=== PATIENT | male | born 1975 | race Caucasian/White ===

== ENCOUNTER 2018-06-30 19:09 | Outpatient (REF) | payer BC, SELFPAY ==
[2018-06-30 22:08] LABS: ALT 48 U/L (12-78); AST 26 U/L (15-37); Albumin 4.4 g/dL (3.4-5.0); Alkaline Phosphatase 110 U/L (46-116); BUN 19 mg/dL (7-18); Bilirubin, Total 0.6 mg/dL (0.2-1.0); CREATININE 1.31 mg/dL (0.70-1.30); Calcium 9.4 mg/dL (8.5-10.1); Chloride 100 mmol/L (98-107); Cholesterol 263 mg/dL (50-200); Estimated GFR 59.44 (mL/min/1.73m2); Glucose 85 mg/dL (70-100); HDL Cholesterol 41 mg/dL (40-60); LDL CHOLESTEROL 181 mg/dL (<100); Potassium 3.7 mmol/L (3.5-5.1); Sodium 140 mmol/L (136-145); TSH (W/Ref FT4) 2.21 uIU/mL (0.358-3.74); Total Protein 8.8 g/dL (6.4-8.2); Triglyceride 251 mg/dL (30-150)
== END 2018-06-30 19:29 ==
LOC: NCHCN 19:09
PROVIDERS: PCP Family Medicine; Visit Provider Family Medicine
DX: I10 Essential (primary) hypertension (principal); Z68.43 Body mass index [BMI] 50.0-59.9, adult; Z00.00 Encounter for general adult medical examination without abnormal findings
CPT/HCPCS: 80053; 80061; 83721; 84443

== ENCOUNTER 2018-08-18 08:25 | Outpatient (REF) | payer BC, SELFPAY ==
[2018-08-18 14:40] LABS: Anion Gap 7.9 mmol/L (3-11); BUN 27 mg/dL (7-18); CO2 30.1 mmol/L (21.0-32.0); CREATININE 1.24 mg/dL (0.70-1.30); Calcium 9.6 mg/dL (8.5-10.1); Chloride 101 mmol/L (98-107); Glucose 144 mg/dL (70-100); Potassium 4.4 mmol/L (3.5-5.1); Sodium 139 mmol/L (136-145)
[2018-08-18 16:07] LABS: COMMENT (LAB VIEW ONLY) 184.29 mg/dL; PROTEIN 15.2 mg/dL; Prot/Crea Ur Ratio 0.08
== END 2018-08-18 08:45 ==
LOC: NCHCN 08:25
PROVIDERS: PCP Family Medicine; Visit Provider Family Medicine
DX: I10 Essential (primary) hypertension (principal); N28.9 Disorder of kidney and ureter, unspecified
CPT/HCPCS: 80048; 82565; 84156

== ENCOUNTER 2019-07-01 10:34 | Outpatient (REF) | payer BC, SELFPAY ==
[2019-07-01 13:43] LABS: Anion Gap 10.9 mmol/L (3-11); BUN 20 mg/dL (7-18); CO2 27.1 mmol/L (21.0-32.0); CREATININE 1.16 mg/dL (0.70-1.30); Calcium 9.5 mg/dL (8.5-10.1); Chloride 99 mmol/L (98-107); Glucose 109 mg/dL (74-106); Potassium 4.2 mmol/L (3.5-5.1); Sodium 137 mmol/L (136-145)
== END 2019-07-01 10:54 ==
LOC: NCHCN 10:34
PROVIDERS: PCP Family Medicine; Visit Provider Family Medicine
DX: Z00.00 Encounter for general adult medical examination without abnormal findings (principal); I10 Essential (primary) hypertension
CPT/HCPCS: 80048

== ENCOUNTER 2021-03-21 15:56 | Outpatient (REF) | payer SELFPAY ==
[2021-03-21 14:12] LABS: Anion Gap 11.3 mmol/L (3-11); BUN 17 mg/dL (7-18); CO2 24.7 mmol/L (21.0-32.0); CREATININE 1.2 mg/dL (0.70-1.30); Calcium 8.9 mg/dL (8.5-10.1); Calculated LDL 176 mg/dL (<100); Chloride 103 mmol/L (98-107); Cholesterol 240 mg/dL (<200); Glucose 104 mg/dL (74-106); HDL Cholesterol 45 mg/dL (40-60); Hemoglobin A1C 5.6 % (<5.7); Potassium 3.8 mmol/L (3.5-5.1); Sodium 139 mmol/L (136-145); Triglyceride 98 mg/dL (<150)
== END 2021-03-21 15:57 | disposition home or self-care (01) ==
LOC: LBN 15:56
PROVIDERS: PCP Family Medicine; Visit Provider Family Medicine
DX: Z00.00 Encounter for general adult medical examination without abnormal findings (principal); N28.9 Disorder of kidney and ureter, unspecified; Z13.1 Encounter for screening for diabetes mellitus; Z13.220 Encounter for screening for lipoid disorders
CPT/HCPCS: 80048; 80061; 83036

== ENCOUNTER 2021-12-24 18:32 | Outpatient (REF) | payer SELFPAY ==
[2021-12-24 19:42] LABS: Anion Gap 9.7 mmol/L (3-11); BUN 16 mg/dL (7-18); CO2 25.3 mmol/L (21.0-32.0); CREATININE 1.3 mg/dL (0.70-1.30); Calcium 8.7 mg/dL (8.5-10.1); Calculated LDL 133 mg/dL (<100); Chloride 107 mmol/L (98-107); Cholesterol 216 mg/dL (<200); Estimated GFR 59.17 (mL/min/1.73m2); Glucose 111 mg/dL (74-106); HDL Cholesterol 43 mg/dL (40-60); Potassium 3.9 mmol/L (3.5-5.1); Sodium 142 mmol/L (136-145); Triglyceride 200 mg/dL (<150)
[2021-12-26 09:50] LABS: HBs Antibody, Quant <3.1 mIU/mL (See Note); Hepatitis B Surface Ab Negative (See Note)
[2021-12-26 09:55] LABS: Hepatitis B Surface Ag Negative (Negative)
[2021-12-26 10:33] LABS: Hep A Total Ab w Rflx IgM Negative (Negative)
[2021-12-26 10:49] LABS: Hepatitis C Ab w Rflx HCV PCR Negative (Negative)
== END 2021-12-24 18:33 | disposition home or self-care (01) ==
LOC: NCHCN 18:32
PROVIDERS: PCP Family Medicine; Visit Provider Family Medicine
DX: Z00.00 Encounter for general adult medical examination without abnormal findings (principal); E78.5 Hyperlipidemia, unspecified; Z11.59 Encounter for screening for other viral diseases; N28.9 Disorder of kidney and ureter, unspecified
CPT/HCPCS: 80048; 80061; 86706; 86709; 86803; 87340

== ENCOUNTER 2023-01-02 00:30 | Outpatient (CLI) | payer OTHER, SELFPAY ==
[2023-01-02 14:32] LABS: CREATININE 1.4 mg/dL (0.70-1.30)
[2023-01-02] MEDS: Normal Saline Flush 10 ML SYR IJ (14:56)
[2023-01-02] MEDS: Normal Saline - Diluent 50 ML VIAL IJ (15:05)
[2023-01-02] MEDS: Omnipaque 350 MG/ML 100 ML BTL IJ (15:08)
--- NOTE | 2023-01-02 15:20 | DI.CT_ITS ---
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 TECHNIQUE: Imaging Protocol: Axial computed tomography images with coronal and sagittal reformatted images were created and reviewed. CONTRAST MATERIAL: Intravenous: Contrast contrast volume:125 mL COMPARISON: No exams were available for comparison FINDINGS: Ventricles and Extra axial spaces: Normal in size and morphology for the patient's age. Hemorrhage: None. Cerebral parenchyma: Normal. Enhancement: No suspicious enhancement. [place]: Unremarkable. Midline shift: None. Brainstem/Cerebellum: Normal. Calvarium: Normal. Visualized Paranasal sinuses/Mastoids: Clear. IMPRESSION: 1. Normal CT scan of the head. 2. Please refer to the CT scan of the neck performed the same day for further details. RADIATION DOSE DELIVERED: 1,612.86mGy.cm Total DLP 1,612.86mGy.cm Total DLP DATA REPOSITORY: All CT scans at this facility are submitted to the National Radiology Data Registry (NRDR) Dose Index Registry (DIR) with the [employer] (ACR). RADIATION OPTIMIZATION: All CT scans at this facility use at least one of these dose optimization te chniques: automated exposure control; mA and/or kV adjustment per patient size (includes targeted exa ms where dose is matched to clinical indication); or iterative reconstruction.
--- NOTE | 2023-01-02 15:30 | DI.CT_ITS ---
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 TECHNIQUE: Imaging Protocol: Axial computed tomography images with coronal and sagittal reformatted images were created and reviewed. CONTRAST MATERIAL: Intravenous: Omnipaque 350 Contrast volume:85mL COMPARISON: No exams were available for comparison FINDINGS: Orbits and orbital soft tissues: Within normal limits. Visualized paranasal sinuses: Within normal limits. Nasopharynx: There is isodense soft tissue in the posterior fossa the nasopharynx measuring 2.2 x 2. 8 x 3.1 cm. There is no involvement of the underlying/adjacent bones. Oropharynx: Within normal limits. Hypopharynx: Within normal limits. Larynx: Within normal limits. Retropharyngeal space: Within normal limits. Parotids/submandibular: Within normal limits. Thyroid gland: Within normal limits. Lymphadenopathy: There is scattered lymph nodes seen along the level one to level three all measurin g less than 8 mm in short axis diameter which are physiologic in nature. Trachea: Within normal limits. Lung apices: Within normal limits. Bones: Within normal limits for the patient's age. Carotids/Jugular: Within normal limits. Soft tissues: Within normal limits. IMPRESSION: 1. Isodense soft tissue mass in the posterior fossa of the nasopharynx. A neoplasm cannot be exclude d. Biopsy should be considered for further evaluation. 2. The largest lymph node has a diameter of 6 mm. No significant cervical adenopathy is appreciated. RADIATION DOSE DELIVERED: 732.69mGy.cm Total DLP 732.69mGy.cm Total DLP DATA REPOSITORY: All CT scans at this facility are submitted to the National Radiology Data Registry (NRDR) Dose Index Registry (DIR) with the [employer] (ACR). RADIATION OPTIMIZATION: All CT scans at this facility use at least one of these dose optimization te chniques: automated exposure control; mA and/or kV adjustment per patient size (includes targeted exa ms where dose is matched to clinical indication); or iterative reconstruction.
== END 2023-01-02 00:50 ==
LOC: DI 00:31
PROVIDERS: PCP Family Medicine; Visit Provider Otolaryngology
DX: J39.2 Other diseases of pharynx (principal); R59.1 Generalized enlarged lymph nodes
CPT/HCPCS: 70491; 70470; 82565; J3490

== ENCOUNTER 2023-01-07 09:56 | Outpatient (REF) | payer OTHER, SELFPAY ==
--- NOTE | 2023-01-07 08:00 | NASALBX_PTH ---
PATIENT: Stephan Carrizales LOC: N U#:[id number] AGE/SX: 47/M ROOM: RE01/07/[address]: Armani Simeon MD : 1975 BED: DIS: 01/07/2023 SPEC #: [id number] RECD: 01/07/23 10:33 STATUS: NEEL REQ #: [id number] MOISÉS: 01/07/23 08:[address]: Armani Simeon DEPT: Surgical Specimen RECD BY: Yarelis Noguera ENTERED: 01/07/23 10:35 SP TYPE: NASALBX OTHR DR: Esteban Dasilva Tissues: 1 - MUCOSA, NOS 2 - FLOW CYTOMETRY NODE/TISSUE Procedures: GROSS AND MICRO LEVEL 4 FLOW CYTOMETRY LYMPHOMA PNL Comments: [id number] (FLOW CYTOMETRY - [id number])
== END 2023-01-07 09:57 | disposition home or self-care (01) ==
LOC: LBN 09:56
PROVIDERS: PCP Family Medicine; Visit Provider Otolaryngology
DX: J39.2 Other diseases of pharynx (principal)
CPT/HCPCS: 88305; 88184; 88185

== ENCOUNTER 2023-01-07 17:46 | Outpatient (REF) | payer OTHER, SELFPAY ==
[2023-01-09 14:02] LABS: Chlamydia Result Negative (Negative); GC Result Negative (Negative)
== END 2023-01-07 17:47 | disposition home or self-care (01) ==
LOC: NCHCN 17:46
PROVIDERS: PCP Family Medicine; Visit Provider Family Medicine
DX: Z00.00 Encounter for general adult medical examination without abnormal findings (principal)
CPT/HCPCS: 87491; 87591

== ENCOUNTER 2023-02-20 07:07 | Day surgery (SDC) | payer OTHER, SELFPAY ==
--- NOTE | 2023-02-19 19:54 | PDOC.DSDIS_ITS ---
Date of service: 02/20/23 Time of Service: 09:40 Discharge Plan Disposition Patient Disposition: Home Condition: Good Discharge Details Reason For Visit: colon scope Attending Provider: Inés Ulloa Primary Care Provider: Esteban Dasilva Home Meds and New Rx's Prescriptions: No Action losartan-hydrochlorothiazide 100-25 mg tablet 1 tab PO DAILY atorvastatin 20 mg tablet 20 mg PO QHS amlodipine 2.5 mg tablet 2.5 mg PO DAILY Discharge Instructions Additional Instructions: DSU Colonoscopy Post- Op Instructions Instructions for Everyone who is given Anesthesia: For your safety, please do the following for the next twenty-four (24) hours: *Do Not operate a motor vehicle (car, truck, motorcycle, etc.) *Do Not drink alcoholic beverages or use any recreational drugs for the first 24 hours or while taking pain medications. The medications in your body may have a reaction that can be dangerous. *Do Not make any important decisions or sign any important papers. Findings: multiple polyps Follow up: NO ASA/NSAID's for 7 days. No strenuous activity for 72 hrs. My office will send a letter in 2 to 3 weeks time with the results of the pathology on the polyp and when we want you to repeat the colonoscopy, most likely 3 years time. 1. No lifting over 20 pounds or strenuous activity for the first 72 hours after your procedure. After 72 hours there are no restrictions on your activity but you may feel fatigued for a few days. 2. After you arrive home you may have a light meal and return to your normal diet as you can tolerate it without feeling sick to your stomach. 3. You may have a bloated, gaseous feeling in your belly (abdomen) after a colonoscopy. Passing gas and belching will help. Walking or lying down on your left side with your knees flexed may relieve the discomfort. Call the office at [phone] (Office) or [phone] (Hospital) right away if you notice any of the following: a.Vomiting of blood or ?coffee ground stools?. b.Rectal bleeding 1Tbsp, blood clots or continuous bleeding. c.Severe belly (abdominal) pain. d.A hard distended belly (abdomen) and an inability to pass gas. 4. Please don?t expect to have a normal BM (bowel movement) for 2-3 days after your procedure. 5. If there are questions regarding the findings of your procedure, please contact your doctor 6. If you are unable to contact your doctor with a problem, contact the hospital at [phone]. 7. Continue all your regular medications unless directed otherwise. I understand the above instructions and have no questions. Signature of Patient or Adult Escort Name of Responsible Adult Escort Signature of Nurse Date/Time Activity:: see above Diet:: see above Discharge Orders Discharge Orders: Discharge Order (Routine); Ordered 02/20/23 Ordered By: Inés Ulloa DS: Diagnosis Discharge Diagnosis (1) Screening for malignant neoplasm of colon performed: Status: Acute Asessment and Plan: ? ? The patient is seen and examined after their colonoscopy.? The patient has been able to pass gas.? They are not having abdominal pain.? They have been able to tolerate liquids and a snack.? They do not have any nausea or vomiting.? They are not having any chest pain or shortness of breath.??? They are not having any rectal bleeding. Their vital signs have been stable-see nursing notes.? ? We discussed findings during their colonoscopy, and any biopsies that were done/polyps that were removed. The patient will be sent a letter with any biopsy results, and when to repeat the colonoscopy.-see discharge instructions.? No ASA or NSAIDs x1 week Patient is due to have his adenoids out on Thursday. I did attempt to get the dog at [place] but we could not contact him. I did leave instructions on his chart for Thursday and with the patient that cannot NSAIDs. Patient also had significant saturation during the procedure, please see anesthesia notes. I did discuss with the patient that even w/ adnoid removal, once he has recovered from this procedure, he needs to go for a sleep evaluation as he has significant desaturation while he is asleep. ? Patient was given explicit instructions to follow-up regarding colonoscopy-refer to discharge instructions.? We reviewed resumption of medications.? Patient verbalized understanding and discharged in stable and satisfactory condition- See nursing notes.? (2) Adenomatous polyps: Status: Acute (3) Renal insufficiency, mild: Status: Acute (4) BMI 45.0-49.9, adult: Status: Acute (5) Adenoidal hypertrophy: Status: Acute
--- NOTE | 2023-02-19 19:58 | W.COLOREPORT ---
Date of service: 02/20/23 Time of Service: 09:45 Colonoscopy Report Date of procedure: 02/20/23 Pre-op diagnosis general: CRC screening Post-op diagnosis procedure note: other (polyps) Surgeon: Inés Ulloa Anesthesia Type: General:No Airway Estimated blood loss (mL): 2 Pathology: other Complications: None Disposition: same day Prep: Miralax/Dulcolax Retraction Time: 25 Procedure Description: After informed consent was obtained the patient was taken to the procedure room and placed in a left decubitous position. Monitors were applied and a time out was done. The patients name, date of , procedure, allergies to medications and metal in their body was reviewed. The patient was then sedated. Once sedated and comfortable a rectal exam was done. External exam was normal. Internal exam revealed a normal sphincter tone and no palpable masses. The prostate is nonpalpable. The scope was then introduced and retrofelexed. No internal hemorrhoids were identified. The scope was then advanced to the cecum w/ some colon difficulty; he did require abdominal pressure. Prep was BBPS 3 in all segments for a total of 9 the TI and appendiceal orifice were identified. The prep was there are no polyps or AVMs identified today.. The scope was then slowly retracted over 25 minutes back into the rectum. There was a 0.75 cm pedunculated polyp at 20 cm. This is removed with a cold forcep. There is a 5 mm polyp adjacent to the cecum. This is removed with a cold biting forceps. There is a 1 cm flat polyp on the ileocecal valve. This was visualized under NBI and it is a polyp and not just the IC vavle itself. This was removed with cold snare. All specimen is retrieved and no bleeding is noted. 3 clips were placed across the defect. This was monitored, and there was no bleeding. He scope was removed and the patient was woken up and taken back to Same day surgery in stable condition. The patient tolerated the procedure well and there were no immediate complications. Follow up: The patient should follow up in 3-5 years, path pd, unless they develop changes in bowel habits or other new gastrointestinal complaints.
[2023-02-20 07:18] VITALS: BP 146/99; PULSE 79; RESP 19; TEMP 36.7; O2SAT 97
[2023-02-20] MEDS: Lactated Ringers 1,000 ML 80 ML IV (07:39)
--- NOTE | 2023-02-20 07:59 | W.ANESPRE ---
General Info Date of Service Date Performed: 02/20/23 Height: 5 ft 10 in Weight: 117.5 kg Body Mass Index (BMI): 37.1 Surgical Procedure: Operation Date: 02/20/23 08:20 Proposed Procedure Side Surgeon eugene Ulloa, Meds Allergies and Home Medications Allergies Allergy/AdvReac Type Severity Reaction Status Date / Time Penicillins Allergy Severe Verified 02/20/23 07:28 nickel Allergy Unknown Verified 02/20/23 07:28 Home Medication Medication Instructions Recorded amlodipine 2.5 mg tablet 2.5 mg PO DAILY 06/09/22 atorvastatin 20 mg tablet 20 mg PO QHS 06/09/22 losartan 100 1 tab PO DAILY 06/09/22 mg-hydrochlorothiazide 25 mg tablet Current Visit Medications: Current Medications Generic Name Dose Route Start Last Admin Trade Name Freq PRN Reason Stop Dose Admin Hyoscyamine Sulfate 0.125 mg 02/20/23 07:52 Hyoscyamine 0.125 Mg Sl/Oral/Chew SL 03/22/23 07:51 DIRECTED PRN Ringer's Solution 1,000 mls @ 80 mls/hr 02/20/23 06:00 02/20/23 07:39 IV 03/21/23 23:59 80 mls/hr INFUSION DIONI Administration IV Miscellaneous Supplies 1 each 02/20/23 06:00 Iv Access IV 03/21/23 23:59 DIRECTED DIONI Ondansetron HCl 4 mg 02/20/23 07:52 Ondansetron 4 Mg/2 Ml Vial IVP 03/22/23 07:51 Q4H PRN PRN Nausea / Vomiting Sodium Chloride 0 ml 02/20/23 06:00 Normal Saline Flush 10 Ml Syr IV 03/21/23 23:59 PRN PRN Sodium Chloride 0 ml 02/20/23 06:00 Normal Saline 10 Ml Vial IJ 03/21/23 23:59 DIRECTED PRN Sterile Water 0 ml 02/20/23 06:00 Water,Injection,Sterile 10 Ml Vial IJ 03/21/23 23:59 DIRECTED PRN PFSH Active Problems Active Problems: Problem Status Onset Code Screening for colon cancer Z12.11 Renal insufficiency, mild N28.9 Carpal tunnel syndrome of right wrist G56.01 BMI 45.0-49.9, adult Z68.42 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 stated he woke up during previous endoscopy Surgical History Surgical History (Updated 02/20/23 @ 07:27 by Narda Lenz RN) H/O endoscopy Hx laparoscopic cholecystectomy Hx of tonsillectomy Tobacco Smoking/Tobacco Use Status: Never Alcohol Alcohol Intake: current Alcohol intake frequency: a few times a week Substance Use Substance use type: does not use Vital Signs and Lab Results Vital Signs Most Recent Vital Signs in EMR: Most Recent Vital Signs Temp Pulse Resp BP Pulse Ox 36.7 C 79 19 146/99 H 97 02/20/23 07:18 02/20/23 07:18 02/20/23 07:18 02/20/23 07:18 02/20/23 07:18 Lab Results Blood Type / Crossmatch: No Data to Display Complete Blood Count: No Data to Display Complete Metabolic Panel: No Data to Display Liver Function Panel: No Data to Display Coagulation Panel: No Data to Display Cardiac Panel: No Data to Display Arterial Blood Gas: No Data to Display Venous Blood Gas: No Data to Display Pancreas Panel: No Data to Display Thyroid Panel: No Data to Display Infectious Disease: No Data to Display Blood Cultures: No Data to Display Toxicology Panel: No Data to Display Anesthesia Assessment and Plan Anesthesia History Personal History: No History of Anesthesia Complications and Other Family History: Other Exercise Tolerance Exercise Tolerance: Metabolic Equivalents>4 Pertinent Negatives Pertinent Negatives: No Symptoms of GERD (rare, food related) Cardiac & Pulmonary Exam Cardiac Exam: Normal S1/S2 Heart Sounds Pulmonary Exam: Clear Bilateral Breath Sounds Implantable Cardiac Device Does patient have a Pacemaker or an ICD?: No Airway Exam Known Difficult Airway: No Mallampati Class: 2 Mouth Opening: Normal (> 3cm) Thyromental Distance: Greater than 3 cm Neck Range of Motion: Full ROM Neck Circumference: Normal Teeth Condition: Normal Dentition ASA Classification ASA Score: ASA 2 Emergency Case?: No NPO Status NPO Status: NPO Clears >2 hours, Solids >8 hours Anesthesia Plan Resuscitation Status: Full Code Anesthesia Technique: General Anesthesia Airway Planned: Natural Airway Monitors Used: Standard Monitors
[2023-02-20 08:00] VITALS: BMI 37.1
--- NOTE | 2023-02-20 08:30 | BOWEL_PTH ---
PATIENT: Stephan Carrizales LOC: [facility] U#:[id number] AGE/SX: 47/M ROOM: RE02/20/[address]: Inés Ulloa : 1975 BED: DIS: 02/20/2023 SPEC #: [id number] RECD: 02/20/23 12:35 STATUS: NEEL RE #: [id number] MOISÉS: 02/20/23 08:[address]: Inés Ulloa DEPT: Surgical Specimen RECD BY: Yarelis Noguera ENTERED: 02/20/23 12:36 SP TYPE: Bowel OTHR DR: Esteban Dasilva Tissues: 1 - BIOPSY BOWEL 2 - BIOPSY BOWEL 3 - BIOPSY BOWEL Procedures: GROSS AND MICRO LEVEL 4 Comments: [id number]
[2023-02-20 09:25] VITALS: BP 120/81; PULSE 75; RESP 16; TEMP 36.3; O2SAT 94
[2023-02-20 09:55] VITALS: BP 119/91; PULSE 64; RESP 18; TEMP 36.2; O2SAT 96
--- NOTE | 2023-02-20 10:15 | W.ANESPOSTOP ---
Postoperative Evaluation Date, Time and Location Date Performed: 02/20/23 Time Performed: 10:15 Patient Location: Day Surgery Unit Vital Signs Most Recent Imported Vital Signs: Most Recent Vital Signs Temp Pulse Resp BP Pulse Ox 36.2 C L 64 18 119/91 H 96 02/20/23 09:55 02/20/23 09:55 02/20/23 09:55 02/20/23 09:55 02/20/23 09:55 Pain Score Most Recent Pain Score: Most Recent Pain Score Pain Level 0 02/20/23 09:25 Assessment Mental Status: Awake (Alert & Oriented to Patient Baseline) Airway and Respiratory Function: Patent airway with normal (patient baseline) respiratory exam Cardiovascular Function: Hemodynamically Stable Hydration Status: Adequately Hydrated Nausea & Vomiting: No Nausea or Vomiting Pain: Pt. Denies Any Pain Peripheral Nerve Block: Patient did not receive a nerve block Postoperative Comments:: Discussed need for patient to have sleep study, he will do this after he gets his adenoids out Thursday. He is comfortable with no complaints.
== END 2023-02-20 11:45 | disposition home or self-care (01) ==
PROVIDERS: PCP Family Medicine; Visit Provider Surgery
PROC: 0DJD8ZZ Inspection of Lower Intestinal Tract, Via Natural or Artificial Opening Endoscopic (ICD-10-PCS; CPT 45378; principal; 2023-02-20 08:15)
DX: Z12.11 Encounter for screening for malignant neoplasm of colon (principal); D12.0 Benign neoplasm of cecum
CPT/HCPCS: 45385; 45380; 88305; J2001

== ENCOUNTER 2023-03-23 06:49 | Day surgery (SDC) | payer OTHER, SELFPAY ==
[2023-03-23] VITALS (7 sets, daily range): BP systolic 106–142; BP diastolic 64–98; PULSE 71–78; RESP 14–22; TEMP 36.5–36.7; O2SAT 93–98; BMI 36.4
[2023-03-23] MEDS: Lactated Ringers 1,000 ML 80 ML IV (07:14)
[2023-03-23] MEDS: CLINDAMYCIN 900 MG/50 ML BAG 50 MG IVPB (07:24)
--- NOTE | 2023-03-23 08:06 | PDOC.DSDIS_ITS ---
Date of service: 03/23/23 Time of Service: 08:06 Discharge Plan Disposition Patient Disposition: Home Condition: Good Discharge Details Reason For Visit: Adenoidectomy Attending Provider: Armani Simeon Primary Care Provider: Esteban Dasilva Moore Meds and New Rx's Prescriptions: No Action losartan-hydrochlorothiazide 100-25 mg tablet 1 tab PO DAILY atorvastatin 20 mg tablet 20 mg PO QHS amlodipine 2.5 mg tablet 5 mg PO DAILY Discharge Instructions Additional Instructions: My cell phone number is [phone]. Please call with any questions or concerns. If you are unable to reach me and you feel it is an emergency, please call 911 or proceed to the emergency room Stand Alone Forms: ENT-Adenoid Inst. [place] Referrals: Armani Simeon MD [ [facility] STAFF PHYSICIAN] - (1 month, please call for appointment prior to patient's departure) Discharge Orders Discharge Orders: Discharge Order (Routine); Ordered 03/23/23 Ordered By: Armani Simeon
--- NOTE | 2023-03-23 08:08 | W.PM.OP ---
Date of service: 03/23/23 Time of Service: 08:59 Operative Note Operative Note DATE OF PROCEDURE: 03/23/23 PRE-OP DIAGNOSIS: Adenoidal hypertrophy POST-OP DIAGNOSIS: same PROCEDURE: Adenoidectomy SURGEON: Armani Simeon ANESTHESIA TYPE: General LMA/ETT Refer to Anesthesia Record ESTIMATED BLOOD LOSS: 50 PATHOLOGY: other (Adenoids) COMPLICATIONS: None Patient was transported to: PACU Patient's condition: stable Indications: Patient with the above problems. Options were explained to patient regarding further management. He elected to undergo the above procedure. Consent was filled out and signed prior to surgery. H&P was reviewed. There have been no changes. Findings: 4+ adenoids Procedure Description: After obtaining an adequate level of general endotracheal anesthesia the patient was positioned in a supine position and prepped and draped in appropriate fashion. A Sathya Bassam mouthgag was carefully introduced into the oral cavity and opened revealed soft and hard palate which were examined revealing no evidence of an occult cleft palate. Tonsils are absent. A catheter was passed through the right nares, grasped at the back of the throat and brought forward to retract the soft palate out of the way. A dental mirror was used to examine the adenoids, and then adenoidal curette used to remove part of the adenoidal tissue. Reverse Meltser's were used to remove the adenoidal tissue that extended up into the nasal cavity. Following this electrocautery suction tip catheter set on 35 W coagulation was used to ablate the residual adenoidal tissue, taking care to avoid damage the asuncion. I may accomplish this, both posterior choana were widely patent, and there was no significant residual adenoidal tissue. The asuncion were undamaged. The catheter was removed and the Sathya-Bassam mouthgag relaxed and removed. The patient tolerated this procedure well. No damage was done to the teeth or the tongue. The patient was then awakened and extubated by anesthesia and taken to recovery room in stable condition. I was present throughout the entire case.
--- NOTE | 2023-03-23 08:20 | W.ANESPRE ---
General Info Date of Service Date Performed: 03/23/23 Height: 5 ft 10.5 in Weight: 116.8 kg Body Mass Index (BMI): 36.4 Surgical Procedure: Operation Date: 03/23/23 08:25 Proposed Procedure Side Surgeon p Adenoidectomy Armani Simeon MD Actual Procedure Side Surgeon p Adenoidectomy Bilateral Armani Simeon MD Pre-Op Diagnosis Post-Op Diagnosis Adenoidal hypertrophy Adenoidal hypertrophy Meds Allergies and Home Medications Allergies Allergy/AdvReac Type Severity Reaction Status Date / Time Penicillins Allergy Severe Verified 03/23/23 07:07 nickel Allergy Unknown Verified 03/23/23 07:07 Home Medication Medication Instructions Recorded amlodipine 2.5 mg tablet 5 mg PO DAILY 06/09/22 atorvastatin 20 mg tablet 20 mg PO QHS 06/09/22 losartan 100 1 tab PO DAILY 06/09/22 mg-hydrochlorothiazide 25 mg tablet Current Visit Medications: Current Medications Generic Name Dose Route Start Last Admin Trade Name Freq PRN Reason Stop Dose Admin Acetaminophen 320 - 650 mg 03/23/23 08:05 Acetaminophen Solution 650 Mg/20.3 Ml Cup PO 04/22/23 08:04 Q4H PRN PRN Ringer's Solution 1,000 mls @ 80 mls/hr 03/23/23 06:00 03/23/23 07:14 IV 04/19/23 23:59 80 mls/hr INFUSION DIONI Administration Clindamycin Phosphate/Dextrose 900 mg in 50 mls @ 50 mls/hr 03/23/23 06:00 03/23/23 07:24 Cleocin In D5w IVPB 03/23/23 18:00 50 mls/hr PREOP DIONI Administration Tranexamic Acid 1,000 mg/ 60 mls @ 360 mls/hr 03/23/23 06:00 Sodium Chloride IVPB 03/23/23 18:00 PREOP DIONI IV Miscellaneous Supplies 1 each 03/23/23 06:00 Iv Access IV 04/19/23 23:59 DIRECTED DIONI Ibuprofen 600 mg 03/23/23 08:05 Ibuprofen 600 Mg Tab PO 04/22/23 08:04 Q6H PRN PRN Sodium Chloride 0 ml 03/23/23 06:00 Normal Saline Flush 10 Ml Syr IV 04/19/23 23:59 PRN PRN Sodium Chloride 0 ml 03/23/23 06:00 Normal Saline 10 Ml Vial IJ 04/19/23 23:59 DIRECTED PRN Sterile Water 0 ml 03/23/23 06:00 Water,Injection,Sterile 10 Ml Vial IJ 04/19/23 23:59 DIRECTED PRN PFSH Active Problems Active Problems: Problem Status Onset Code Adenomatous polyps ~01/2023 D36.9 Screening for colon cancer Z12.11 Renal insufficiency, mild N28.9 Carpal tunnel syndrome of right wrist G56.01 BMI 45.0-49.9, adult Z68.42 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 stated he woke up during previous endoscopy Surgical History Surgical History H/O endoscopy History of colonoscopy (~01/2023) Hx laparoscopic cholecystectomy Hx of tonsillectomy Tobacco Smoking/Tobacco Use Status: Never Alcohol Alcohol Intake: current Alcohol intake frequency: a few times a week Substance Use Substance use type: does not use Vital Signs and Lab Results Vital Signs Most Recent Vital Signs in EMR: Most Recent Vital Signs Temp Pulse Resp BP Pulse Ox 36.7 C 75 19 142/98 H 98 03/23/23 07:00 03/23/23 07:00 03/23/23 07:00 03/23/23 07:00 03/23/23 07:00 Lab Results Blood Type / Crossmatch: No Data to Display Complete Blood Count: No Data to Display Complete Metabolic Panel: No Data to Display Liver Function Panel: No Data to Display Coagulation Panel: No Data to Display Cardiac Panel: No Data to Display Arterial Blood Gas: No Data to Display Venous Blood Gas: No Data to Display Pancreas Panel: No Data to Display Thyroid Panel: No Data to Display Infectious Disease: No Data to Display Blood Cultures: No Data to Display Toxicology Panel: No Data to Display Anesthesia Assessment and Plan Anesthesia History Personal History: No History of Anesthesia Complications and Other Family History: Other Exercise Tolerance Exercise Tolerance: Metabolic Equivalents>4 Pertinent Negatives Pertinent Negatives: No Symptoms of GERD Cardiac & Pulmonary Exam Cardiac Exam: Normal S1/S2 Heart Sounds Pulmonary Exam: Clear Bilateral Breath Sounds Implantable Cardiac Device Does patient have a Pacemaker or an ICD?: No Airway Exam Known Difficult Airway: No Mallampati Class: 2 Mouth Opening: Normal (> 3cm) Thyromental Distance: Greater than 3 cm Neck Range of Motion: Full ROM Neck Circumference: Normal Teeth Condition: Normal Dentition ASA Classification ASA Score: ASA 2 Emergency Case?: No NPO Status NPO Status: NPO Clears >2 hours, Solids >8 hours Anesthesia Plan Resuscitation Status: Full Code Anesthesia Technique: General Anesthesia Airway Planned: Endotracheal Tube Monitors Used: Standard Monitors
--- NOTE | 2023-03-23 08:43 | ADE_PTH ---
PATIENT: Stephan Carrizales LOC: [facility] U#:[id number] AGE/SX: 47/M ROOM: RE03/23/[address]: Armani Simeon MD : 1975 BED: DIS: 03/23/2023 SPEC #: [id number] RECD: 03/23/23 12:37 STATUS: NEEL REQ #: [id number] MOISÉS: 03/23/23 08:[address]: Armani Simeon DEPT: Surgical Specimen RECD BY: Yarelis Noguera ENTERED: 03/23/23 12:37 SP TYPE: Adenoids OTHR DR: Esteban Dasilva Tissues: 1 - ADENOID AGE 16 & OVER Procedures: GROSS AND MICRO LEVEL 3 Comments: [id number]
--- NOTE | 2023-03-23 10:02 | W.ANESPOSTOP ---
Postoperative Evaluation Date, Time and Location Date Performed: 03/23/23 Time Performed: 10:04 Patient Location: Day Surgery Unit Vital Signs Most Recent Imported Vital Signs: Most Recent Vital Signs Temp Pulse Resp BP Pulse Ox 36.6 C 73 17 109/75 93 03/23/23 09:37 03/23/23 09:37 03/23/23 09:37 03/23/23 09:37 03/23/23 09:37 Pain Score Most Recent Pain Score: Most Recent Pain Score Pain Level 2 03/23/23 09:37 Assessment Mental Status: Awake (Alert & Oriented to Patient Baseline) Airway and Respiratory Function: Patent airway with normal (patient baseline) respiratory exam Cardiovascular Function: Hemodynamically Stable Hydration Status: Adequately Hydrated Nausea & Vomiting: No Nausea or Vomiting Pain: Pt. Denies Any Pain Peripheral Nerve Block: Patient did not receive a nerve block
== END 2023-03-23 10:22 | disposition home or self-care (01) ==
PROVIDERS: PCP Family Medicine; Visit Provider Otolaryngology
PROC: (CPT 42831; principal; 2023-03-23 08:15)
DX: J35.2 Hypertrophy of adenoids (principal); I10 Essential (primary) hypertension
CPT/HCPCS: 42831; 88304; J1100; J2405; J2704; J3010

== ENCOUNTER 2024-04-25 10:57 | Outpatient (CLI) | payer OTHER, SELFPAY ==
[2024-04-25 07:30] LABS: ALT 45 U/L (16-63); AST 30 U/L (15-37); Albumin 3.8 g/dL (3.4-5.0); Alkaline Phosphatase 119 U/L (46-116); Anion Gap 12.9 mmol/L (3-11); BUN 25 mg/dL (7-18); Bilirubin, Total 0.53 mg/dL (0.2-1.0); CO2 26.1 mmol/L (21.0-32.0); CREATININE 1.3 mg/dL (0.70-1.30); Calcium 8.9 mg/dL (8.5-10.1); Chloride 101 mmol/L (98-107); Estimated GFR 66.93 (mL/min/1.73m2); Glucose 133 mg/dL (74-106); Magnesium 2.2 mg/dL (1.8-2.4); Potassium 3.5 mmol/L (3.5-5.1); Sodium 140 mmol/L (136-145); Total Protein 8.4 g/dL (6.4-8.2)
[2024-04-25 19:15] LABS: HIV-1/2 Ag & Ab Screen Negative (Negative)
[2024-04-26 11:07] LABS: Syphilis Serology (RPR) Negative (Negative)
== END 2024-04-25 10:58 | disposition home or self-care (01) ==
LOC: LBO 10:59
PROVIDERS: PCP Family Medicine; Visit Provider Student in an Organized Health Care Education/Training Program
DX: I10 Essential (primary) hypertension (principal); Z11.3 Encounter for screening for infections with a predominantly sexual mode of transmission
CPT/HCPCS: 36415; 80053; 87389; 87491; 87591; 82043; 82570; 83735; 86592

== ENCOUNTER 2024-04-29 10:08 | Outpatient (REF) | payer OTHER, SELFPAY ==
[2024-04-29 10:27] LABS: COMMENT (LAB VIEW ONLY) 110.12 mg/dL; Microalb ug/mg Crea 6.3 ug/mg Cr
[2024-05-02 12:04] LABS: Chlamydia Result Negative (Negative); GC Result Negative (Negative)
== END 2024-04-29 10:09 | disposition home or self-care (01) ==
LOC: NCHCN 10:08
PROVIDERS: PCP Family Medicine; Visit Provider Student in an Organized Health Care Education/Training Program
DX: I10 Essential (primary) hypertension (principal); Z11.3 Encounter for screening for infections with a predominantly sexual mode of transmission
CPT/HCPCS: 87491; 87591; 82043; 82570

== ENCOUNTER 2025-03-09 11:52 | Outpatient (CLI) | payer OTHER, SELFPAY ==
[2025-03-09 11:14] LABS: Anion Gap 8.2 mmol/L (3-11); BUN 27 mg/dL (7-18); CO2 28.8 mmol/L (21.0-32.0); Calcium 9.0 mg/dL (8.5-10.1); Chloride 103 mmol/L (98-107); Estimated GFR 52.17 (mL/min/1.73m2); Glucose 155 mg/dL (74-106); Magnesium 2.2 mg/dL (1.8-2.4); Potassium 3.4 mmol/L (3.5-5.1); Sodium 140 mmol/L (136-145)
== END 2025-03-09 11:53 | disposition home or self-care (01) ==
LOC: LBO 11:53
PROVIDERS: PCP Family Medicine; Visit Provider Student in an Organized Health Care Education/Training Program
DX: I10 Essential (primary) hypertension (principal)
CPT/HCPCS: 36415; 80048; 83735

== ENCOUNTER 2025-03-23 08:22 | Outpatient (RCR) | payer SELFPAY | END 2025-03-26 23:59 | disposition home or self-care (01) | LOC: CR 08:22 | PROVIDERS: PCP Family Medicine; Visit Provider Internal Medicine Cardiovascular Disease ==

== ENCOUNTER 2025-04-10 11:00 | Outpatient (RCR) | payer OTHER, SELFPAY ==
--- NOTE | 2025-04-10 11:00 | RT.EKG_ITS ---
APPROVED REPORT Exam: Resting ECG Reason for Exam: Cardiac Rehab Baseline EKG Patient Location: O HR:70 bpm ECG Measurements Heart Rate 70 AXIS NM 168 P 18 QRSd 95 QRS -25 QT 415 T -30 QTc 448 Conclusion Sinus rhythm...normal P axis, V-rate 50- [address]-T abnormalities
== END 2025-04-25 23:59 | disposition home or self-care (01) ==
LOC: CR 11:00
PROVIDERS: PCP Family Medicine; Visit Provider Internal Medicine Cardiovascular Disease
DX: I21.3 ST elevation (STEMI) myocardial infarction of unspecified site (principal); Z95.5 Presence of coronary angioplasty implant and graft; Z51.89 Encounter for other specified aftercare
CPT/HCPCS: S9472

== ENCOUNTER 2025-04-24 08:00 | Outpatient (RCR) | payer OTHER, SELFPAY | END 2025-04-25 23:59 | disposition home or self-care (01) | LOC: CR 08:00 | PROVIDERS: PCP Family Medicine; Visit Provider Internal Medicine Cardiovascular Disease | DX: I25.10 Atherosclerotic heart disease of native coronary artery without angina pectoris (principal); I21.09 ST elevation (STEMI) myocardial infarction involving other coronary artery of anterior wall; Z95.5 Presence of coronary angioplasty implant and graft; Z51.89 Encounter for other specified aftercare | CPT/HCPCS: S9472 ==

== ENCOUNTER 2025-05-10 08:00 | Outpatient (RCR) | payer OTHER, SELFPAY | END 2025-05-26 23:59 | disposition home or self-care (01) | LOC: CR 08:00 | PROVIDERS: PCP Family Medicine; Visit Provider Internal Medicine Cardiovascular Disease | DX: I25.10 Atherosclerotic heart disease of native coronary artery without angina pectoris (principal); I21.3 ST elevation (STEMI) myocardial infarction of unspecified site; Z95.5 Presence of coronary angioplasty implant and graft | CPT/HCPCS: S9472 ==